=== PATIENT | male | born 1950 | race African-American/Black ===

== ENCOUNTER → 2016-07-20 | Outpatient (CLI) | payer OTHER ==
[~2016-07-20] MED LIST: ASPIRIN325 PO; CARVEDILOL25 MG PO; CARVEDILOL6.25 MG; FERREX 150150 MG; FUROSEMIDE 40 M40 M1; GLIPIZIDE ER10 MG PO; GLUCOPHAGE1000 MG PO; HYDROXYZINE HCL25 M1 PO; IMDUR 30 MG TAB30 M1 PO; K-DUR 20 MEQ T20 MEQ PO; LANTUS SC; LISINOPRIL20 MG; LISINOPRIL40 MG PO; LYRICA 75 MG CA75 MG PO; LYRICA OR; MULTIVITAMINS PO; NAPROSYN500 MG PO; NEURONTIN600 MG PO; NIASPAN ER 101000 M1 PO; PLAVIX 75 MG TA75 MG PO; PRINIVIL40 MG; PRINIVIL40 MG PO; SIMVASTATIN20 MG PO; VICODIN; VICODIN PO
== END ==
LOC: CAT 10:35
DX: R91.1 Solitary pulmonary nodule (principal)

== ENCOUNTER → 2017-02-10 | Outpatient (CLI) | payer OTHER | LOC: LABMALL 13:47 | DX: I25.10 Atherosclerotic heart disease of native coronary artery without angina pectoris (principal); R06.09 Other forms of dyspnea ==